=== PATIENT | male | born 1970 | race African-American/Black ===

== ENCOUNTER → 2017-08-24 15:09 | Outpatient (CLI) | payer BC, SELFPAY ==
--- NOTE | 2017-08-24 15:16 | CT_ITS ---
CT head/brain wo con INDICATION: Syncopal episode, hit back of head on concrete Routine axial images for brain followed by additional post-processing axial bone window images. Axial CT scanning from the base of the skull through the vertex to evaluate the brain was performed. Subsequent post processing 2-D CT bone windows were submitted to PACS and are useful to evaluate calvarium, visualize portions of paranasal sinuses, mastoids and base of skull. Technique: All CT scans at this facility use one or more dose reduction techniques, viz.: automated exposure control; ma/kV adjustment per patient size (including targeted exams where dose is matched to indication; i.e. head) or iterative reconstruction technique. Multiaxial scans are obtained from the base of the skull to the vertex and performed without contrast. The base of the skull appeared normal. The ventricular system was normal. There was no ischemic infarct or bleed and there were no extra-axial fluid collections. The bony calvarium appeared intact. IMPRESSION: Negative noncontrast CT scan of the brain.
== END ==
PROVIDERS: PCP Nurse Practitioner; Visit Provider Nurse Practitioner
DX: S06.0X9A Concussion with loss of consciousness of unspecified duration, initial encounter (principal); R53.1 Weakness
CPT/HCPCS: 70450

== ENCOUNTER → 2019-04-08 10:44 | Outpatient (CLI) | payer OTHER, SELFPAY ==
--- NOTE | 2019-04-08 10:44 | MR_ITS ---
PROCEDURE: MR SHOULDER RT WO CON CLINICAL INDICATION: Decreased ROM right shoulder Decreased range of motion, fall with injury and pain, weakness in right arm COMPARISON: XR SHOULDER RT MIN 2V from 03/21/2019 TECHNIQUE: Routine multiplanar multi echo sequences are performed without gadolinium enhancement. FINDINGS: There is some increased T2 signal involving the posterior aspect of the supraspinatus tendon with suggestion of some discontinuity suggesting a full-thickness tear along the posterior aspect of the supraspinatus tendon. A complete tear with tendinous some muscle retraction is not present. There is increased T2 signal involving the greater tuberosity which could be posttraumatic or inflammatory in nature. The subscapularis, teres minor, and infraspinatus tendons appear intact. There is a small amount of subdeltoid fluid signal. No obvious labral tear. The bicipital tendon is in place. No significant effusion. There is a small amount of bone marrow edema in the humeral head posteriorly. IMPRESSION: 1. There does appear to be a full-thickness tear along the posterior aspect of the supraspinatus tendon. A complete tear however is not present. 2. There is some bone marrow edema at the greater tuberosity in the humeral head and a small amount of subdeltoid fluid Dictated by: Ravi Sanchez MD 04/11/2019 10:01 Electronically signed by Ravi Sanchez MD in [place] 04/11/2019 10:01
== END ==
PROVIDERS: PCP Physician Assistant; Visit Provider Physician Assistant
DX: M25.511 Pain in right shoulder (principal)
CPT/HCPCS: 73221

== ENCOUNTER 2019-04-19 09:00 | Outpatient (RCR) | payer OTHER, SELFPAY ==
--- NOTE | 2019-04-05 11:40 | HMH.OTOPEV ---
OT Inpatient Evaluation Rehab OT Outpatient Eval Start: 04/05/19 11:27 Freq: Status: Active Protocol: Document 04/05/19 11:27 SUNNY (Rec: 04/05/19 11:39 [id number] Electronically Signed By Maddie Nieto OT 04/05/19 11:27 Outpatient Therapy Subjective History Subjective History Pt is a 48 year old male who reports to therapy for initial evaluation to right shoulder. Pt reports he was wrestling around with a friend and heard a pop in his right shoulder resulting in immediate pain. Pt has had decreased AROM and pain since this accident. Pt does demonstrate with decreased AROM and strength at right shoulder. Pt has most pain and palpation tenderness over the bicep tendon. Pt is right hand dominant. Pt has an MRI scheduled at 11 on thursday . Pt will continue to be seen twice a week in order to address all deficits. Chief Complaint Pain,Stiff,Weakness Symptom Type Ache,Throb,Sharp,Shooting Symptoms Relieved By Nothing Symptoms Aggravated By Physical Activity,Lifting Prior Functional Limitations None Current Functional Limitations Reaching,Lifting,Housework, Driving,Sleeping,Recreation Activity Symptom Description Constant but Variable Level of pain today (0-10) 4 Pain scale - at its best (0-10) 4 Pain scale - at its worst (0-10) 10 Shoulder/Elbow Eval Shoulder Objective Measurements Shoulder ROM Right Shoulder ROM Limitations Pain Shoulder Abduction Active Range of 105 degrees Motion (degrees) Shoulder Flexion Active Range of Motion 105 degrees (degrees) Query Text: Shoulder External Rotation Active Range 30 degrees of Motion (degrees) Shoulder Internal Rotation Active Range 42 degrees of Motion (degrees) pain with active ROM shoulder exam right standard pain with passive ROM shoulder exam right standard decreased ROM shoulder exam standard right full ROM shoulder exam standard left Shoulder MMT Shoulder Abduction Strength Grade 3+ Fair+ Shoulder Extension Strength Grade 3+ Fair+ Shoulder Flexion Strength Grade 3+ Fair+ Shoulder Horizontal Abduction Strength 3 Fair
== END 2019-04-19 09:05 | disposition home or self-care (01) ==
LOC: OT 09:00
PROVIDERS: PCP Physician Assistant; Visit Provider Physician Assistant
DX: M25.511 Pain in right shoulder (principal)
CPT/HCPCS: 97014; 97033; 97110; 97166; G0283

== ENCOUNTER 2019-04-26 15:05 | Outpatient (RCR) | payer OTHER, SELFPAY | END 2019-04-26 15:40 | disposition home or self-care (01) | LOC: OT 15:05 | PROVIDERS: Visit Provider Orthopaedic Surgery | DX: G56.01 Carpal tunnel syndrome, right upper limb (principal) | CPT/HCPCS: 97763 ==

== ENCOUNTER → 2019-05-09 11:01 | Outpatient (POV) | payer OTHER, SELFPAY | PROVIDERS: PCP Physician Assistant; Visit Provider Specialist | DX: R20.2 Paresthesia of skin (principal); M79.602 Pain in left arm; M79.601 Pain in right arm | CPT/HCPCS: 95886; 95908 ==

== ENCOUNTER → 2019-08-12 08:37 | Outpatient (CLI) | payer OTHER, SELFPAY ==
--- NOTE | 2019-08-12 08:57 | XR_ITS ---
PROCEDURE: XR CHEST 2V CLINICAL HISTORY: H/O TOBACCO USE COMPARISON: No exams were available for comparison FINDINGS: The cardiomediastinal silhouette and pulmonary vascularity are within normal limits. There is evidence of old granulomatous disease with calcified granulomas on the right. Lungs are otherwise clear. The No acute bony abnormalities. IMPRESSION: No acute findings. Dictated by: Ravi Sanchez MD 08/16/2019 09:18 Electronically signed by Ravi Sanchez MD in [facility] 08/16/2019 09:18
[2019-08-12 09:09] LABS: Basophils % 0.4 % (0.1-2.0); Eosinophils # 0.2 K/mm3 (0.0-0.4); Hematocrit 40.7 % (42.0-52.0); Lymphocytes # 1.5 K/mm3 (0.7-4.5); Lymphocytes % 35.5 % (10-50); Mean Corpuscular HGB Conc 34.4 g/dL (31.8-35.4); Mean Corpuscular Volume 101.9 fl (80-94); Mean Platelet Volume 7.8 fl (7.4-10.4); Monocytes # 0.3 K/mm3 (0.1-1.0); Monocytes % 6.2 % (1.7-9.3); Neutrophils # 2.3 K/mm3 (1.8-7.8); Neutrophils % 53.9 % (37.0-80.0); Platelet Count 183 K/mm3 (142-424); Red Blood Count 3.99 M/mm3 (4.60-6.20); White Blood Count 4.3 K/mm3 (4.8-10.8)
[2019-08-12 09:47] LABS: Alanine Aminotransferase 26 U/L (12-78); Albumin Level 4.4 g/dl (3.5-5.0); Albumin/Globulin Ratio 1.7 (1.1-1.8); Alkaline Phosphatase 85 U/L (38-126); Anion Gap 10.6 mEq/L (5-15); Aspartate Amino Transferase 38 U/L (17-59); Bilirubin,Total 0.5 mg/dl (0.2-1.3); Blood Urea Nitrogen 22 mg/dl (9-20); Calcium 9.6 mg/dl (8.4-10.2); Carbon Dioxide 31 mmol/L (22.0-30.0); Chloride 101 mmol/L (98-107); Estimated Glomerular Filt Rate 79 ml/min (>60); GFR (African American) 96 ML/MIN (>60); Globulin 2.6 g/dL (1.3-3.2); Glucose 163 mg/dl (74-100); Potassium 4.6 mmoL/L (3.5-5.1); Sodium 138 mmol/L (136-145)
[2019-08-12 10:03] LABS: Coronavirus 19 IgG Antibody Negative (Negative); Coronavirus 19 IgM Antibody Negative (Negative)
== END ==
PROVIDERS: Visit Provider Orthopaedic Surgery
DX: Z01.818 Encounter for other preprocedural examination (principal); M25.511 Pain in right shoulder
CPT/HCPCS: 36415; 71046; 80053; 85025; 86328

== ENCOUNTER → 2019-08-14 12:02 | Outpatient (CLI) | payer OTHER, SELFPAY | PROVIDERS: PCP Physician Assistant; Visit Provider Physician Assistant | DX: Z01.818 Encounter for other preprocedural examination (principal) ==

== ENCOUNTER 2019-08-15 07:17 | Day surgery (SDC) | payer OTHER, SELFPAY ==
[2019-08-10 11:17] VITALS: BMI 23.7
[2019-08-15] VITALS (10 sets, daily range): BP systolic 104–144; BP diastolic 48–76; PULSE 58–100; RESP 13–20; TEMP 36.2–43; O2SAT 94–100
--- NOTE | 2019-08-15 09:26 | HMH.ANESCL ---
[facility] Anesthesia Checklist - Patient Identification Patient Identification: Arm Band, Verbal (Name & ) - Structural Data Admitted From: Home Planned Operative Procedure/s: Right shoulder arthroscopy, open RCR, subacromial decompression, biceps ten Consent for Planned Operative Procedure(s) Verified: Yes Verified Documents: Surgical Consent, History and Physical - NPO Status Verified Time NPO: 23:00 - Chart Verification Results Verified: CBC, BMP, PT, PTT, INR - Additional verifications Anesthesia Reactions: No Hx Blood Transfusions: No Blood Transfusion Reaction: No - Airway Assessment C-Spine Mobility Assessed: Yes TMJ Mobility Assessed: Yes Dentition: Poor Dentition (missing/broken) - Neurological Assessment Level of Consciousness: Awake, Alert, Appropriate, Follows Commands Hx Seizures: No Numbness or tingling in extremities: No - Anesthesia Plan Anesthesia Risk discussed: Yes Anesthesia Plan: Verified ASA Class: II Anesthesia Type: General w/block [facility] History I have reviewed the patient's past medical history: Yes Medical History: Denies:: Cancer, Diabetes Mellitus Type 1, Diabetes Mellitus Type 2, MRSA, Seizures *Have you ever received a pneumonia vaccine?: No *Have you received a flu vaccine this season?: Yes Other Medical History: Denies: Blood Transfusion Reaction Anesthesia experience/problems:: no prior complications Other Surgeries: Yes: Appendectomy, Other (left thumb) Amputation: No Fractures: No - *Social History Smoking Status: Current every day smoker Tobacco Type: cigarettes # Packs/Day (cigarettes): 1 Alcohol Intake: current Alcohol Intake Frequency:: holidays/special occasions only Substance Use Type: marijuana *Occupational Status:: employed *Travel in the last 8 weeks: None Family Hx:: No significant family history
--- NOTE | 2019-08-15 13:13 | SUR.OPER ---
1313-family updated at this time
[2019-08-15 13:40] LABS: Microscopic,Cath URINE MICROSCOPIC (MICROSCOPIC)
--- NOTE | 2019-08-15 14:32 | SUR.OPER ---
1432-family updated at this time
[2019-08-15 14:35] LABS: Appearance,Urine/Cath CLEAR (Clear); Bilirubin,Cath Negative (Negative); Blood, Urine/Cath Negative (Negative); Color,Urine/Cath YELLOW (Yellow); Glucose,Urine/Cath (UA) Negative (Negative); Ketones,Urine/Cath Negative (Negative); Leukocyte Esterase,Cath Negative (Negative); Nitrate,Cath Negative (Negative); Protein,Urine/Cath Negative (Negative); Specific Gravity, Urine/Cath >= 1.030 (1.005-1.030); Urobilinogen,Cath 0.2 EU/dl (0.2)
[2019-08-15 14:41] LABS: RBC,Urine/Cath Occasional # /hpf (0-3); Squamous Epithelial Ur./Cath Occasional #/hpf (0-5)
--- NOTE | 2019-08-15 16:38 | HMH.ANESI ---
[facility] Anesthesia Record Part I Intake, IV Amount: 1,600 Estimated blood loss (mL): 50 Urine output (mL): 300 Blood Products used (#): none Blood Pressure: 144/73 SaO2: 97 Pulse Rate: 100 Respiratory Rate: 13 Temperature: 97.2 F Patient is:: Awake, Drowsy, Stable Stable to PACU at:: 16:30 Comments:: Pt states no pain at this time, VSS. Pt tolerated procedure well.
--- NOTE | 2019-08-15 17:01 | HMH.OPNOTE ---
Date of procedure: 08/15/19 Pre-op Diagnosis:: 1. Full-thickness Rotator cuff tear RIGHT shoulder 2. Biceps tendinopathy RIGHT shoulder 3. Subacromial bursitis RIGHT shoulder 4. Subacromial impingement RIGHT shoulder 5. Rotator cuff tendinopathy RIGHT shoulder Post-op Diagnosis:: 1. Rotator cuff tear RIGHT [id number] partial thickness tear of the supraspinatus. 2. Biceps tendinopathy RIGHT shoulder 3. Subacromial bursitis RIGHT shoulder 4. Subacromial impingement RIGHT shoulder 5. Degenerative labrum and synovitis RIGHT glenohumeral joint Procedure performed:: 1. Arthroscopic rotator cuff repair, RIGHT shoulder. 2. Arthroscopic subacromial decompression with subacromial and subdeltoid bursectomy and bony acromioplasty, RIGHT shoulder. 3. Arthroscopic glenohumeral joint debridement, extensive, RIGHT shoulder. 4.? Arthroscopic biceps tenodesis, RIGHT shoulder. Surgeon:: Ronaldo Slaughter MD GANG MINER:: Suleman Spain Anesthesia: GETA, regional (Interscalene block) Estimated blood loss (mL): 5 Clinical Note:: Patient is a pleasant 49-year-old [id number] gentleman with history of pain and disability in his RIGHT shoulder for over 6 months. His symptoms started following an injury at that time while he was wrestling with a friend. His symptoms gradually worsened over the period of time and continued to be troublesome during his daily activities. He had weakness and difficulty with the use of the arm. Preoperative evaluation was consistent with the above mentioned diagnosis. His shoulder MRI scan showed a full-thickness tear of the supraspinatus tendon. 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 He has no significant medical problems; no history of diabetes mellitus; he is a chronic smoker. After discussion of the risks and benefits of the surgical versus nonsurgical management, he elected to proceed with surgical remediation. Please refer to my office note for full details. Operative findings:: There was a high-grade partial-thickness tear of the supraspinatus tendon involving more than 50% of the tendon thickness. The biceps tendon showed synovitis in the bicipital groove. At the time of arthroscopic tenodesis marked synovitis and partial thickness tear was noted in the extra-articular part of the biceps tendon. The labrum was frayed all around and was partially detached around the biceps anchor. The pouch and rotator interval were synovitic. The articular surface of the humerus was normal and the glenoid had minor degenerative changes. There was extensive subacromial and subdeltoid bursitis and the acromion had undersurface spurring over the anterolateral margin. Operative note:: On the day of the procedure, the patient was met and positively identified in the preoperative area; the surgical site was marked and initialed by me. I have again reviewed the clinical, x- ray and MRI findings with the patient. We had a detailed discussion about the diagnosis, implications of it, natural history and management options including both nonsurgical and surgical options for the shoulder.? Patient has decided to proceed with surgery as planned - the proposed surgery includes arthroscopic/open glenohumeral joint examination and debridement as appropriate, subacromial decompression with bony acromioplasty, rotator cuff repair as needed and biceps tenodesis.? Nonsurgical alternatives explained as well which in his case would be rest, activity modification, local ice and heat as appropriate, physical therapy, local steroid injections, nonsteroidal anti-inflammatory drugs and other effective pain management measures. I told the patient that there were no guarantees with surgery; he could be no better or even worse. The complications discussed include but are not limited to infection, injury to nerves, blood vessels and tendons/ligaments, bleeding, continued symptoms, ectopic calcification, reactive bursitis, adhesive capsulitis, shoulder stiffness,
--- NOTE | 2019-08-15 17:09 | PC.NURSE ---
1657-detailed report called to MARTÍNEZ Singh 1699-pt transported to post op via stretcher w/jose rails up and left in care of MARTÍNEZ Singh with bed locked in lowest position, vss, pt stable
--- NOTE | 2019-08-16 07:13 | P.PN_ITS ---
[facility] Anesthesia Record Part II Discharge Time: 17:20 Destination: Surgical Day Care (OP Surgery) PACU nurse assessment reviewed?: Yes Patient Condition:: Good Anesthesia Complications:: None Swallowing reflex intact?: Yes Cyanosis?: No Blood Pressure: 109/58 Pulse Rate: 93 Temperature: 97.6 F Mental Status: Alert & Oriented Pain level:: 0 Nausea and/or vomitting:: None Intake, IV Amount: 0
[2019-08-16 07:15] VITALS: BP 109/58; PULSE 93; TEMP 36.4
== END 2019-08-15 17:44 | disposition home or self-care (01) ==
PROVIDERS: PCP Physician Assistant; Visit Provider Orthopaedic Surgery
PROC: (CPT 29805; principal; 2019-08-15 09:00)
DX: M75.121 Complete rotator cuff tear or rupture of right shoulder, not specified as traumatic (principal); M75.51 Bursitis of right shoulder; M67.911 Unspecified disorder of synovium and tendon, right shoulder; M75.41 Impingement syndrome of right shoulder; M75.21 Bicipital tendinitis, right shoulder; Z72.0 Tobacco use
CPT/HCPCS: 29827; 29828; 29826; 81001; 96374; C1713; J2405

== ENCOUNTER → 2019-11-16 12:56 | Outpatient (CLI) | payer OTHER, SELFPAY ==
--- NOTE | 2019-11-16 13:00 | XR_ITS ---
PROCEDURE: XR SHOULDER RT MIN 2V CLINICAL INDICATION: sp RT shoulder surgery, sx 08/16/2019 Surgery COMPARISON: CR XR SHOULDER RT MIN 2V from 03/21/2019 FINDINGS: There has been interval right shoulder surgery with 2 anchor screws in the right humeral neck region as well as a lucency within the proximal shaft of the humerus from bicipital transfer. There is some minimal cortical regularity of the humeral head at the greater tuberosity region and there is mild osteoarthritic change of the glenohumeral joint. No acute fracture or dislocation. No lytic or blastic change. IMPRESSION: Postsurgical changes as described above with mild osteoarthritis of the glenohumeral joint Dictated by: Ravi Sanchez MD 11/16/2019 16:05 Ravi Sanchez MD in [place] 11/16/2019 16:05
== END ==
PROVIDERS: PCP Physician Assistant; Visit Provider Orthopaedic Surgery
DX: Z09 Encounter for follow-up examination after completed treatment for conditions other than malignant neoplasm (principal); Z98.890 Other specified postprocedural states; M75.101 Unspecified rotator cuff tear or rupture of right shoulder, not specified as traumatic
CPT/HCPCS: 73030

== ENCOUNTER 2019-12-06 16:30 | Outpatient (RCR) | payer OTHER, SELFPAY ==
--- NOTE | 2019-10-13 12:03 | HMH.PTOPEV ---
PT Outpatient Evaluation Rehab PT Outpatient Evaluation Start: 10/13/19 11:42 Freq: Status: Active Protocol: Document 10/13/19 11:42 JOSE (Rec: 10/13/19 12:03 LOISVERONICAGARY [id number]) Electronically Signed By Roberto Cavanaugh, PT 10/13/19 11:42 Outpatient Therapy Subjective History Subjective History Patient is a 49 year old male presenting to outpatient PT with reports of R post- surgical shoulder S/P R shoulder RCR with SAD, sub acromial/subdeltoid bursectomy , GHJ debridement and biceps tenodesis performed 08/15/19. Pt currently on 5lb lifting restriction per patient report . Onset of symptoms indidious. Hx of R shoulder pain for approx 1 year. Pt reports incident while driving when he made a quick reaching motion causing a pop in the biceps area posssibly indicating compromise of biceps tensodeses. No other comorbidities to report. Chief Complaint Pain,Stiff Symptom Type Ache,Sharp Symptoms Relieved By Rest/Positioning,Ice Symptoms Aggravated By Physical Activity,Lifting Prior Functional Limitations None Current Functional Limitations Reaching,Lifting,Housework, Recreation Activity Symptom Description Intermittent Level of pain today (0-10) 0 Pain scale - at its best (0-10) 0 Pain scale - at its worst (0-10) 4 Shoulder/Elbow Eval Shoulder Objective Measurements Palpation Tenderness tenderness over the bicipital tendon left shoulder exam standard Shoulder Palpation Overall Comment 3/4 Posture Shoulder Posture Sitting Position Neutral Shoulder Posture Standing Position Neutral Shoulder ROM Right Shoulder Abduction Active Range of 35 Motion (degrees) Shoulder Flexion Active Range of Motion 32 (degrees) Query Text: Shoulder External Rotation Active Range 30 of Motion (degrees) Shoulder Internal Rotation Active Range WNL of Motion (degrees) Shoulder MMT Bilateral Shoulder Strength Reason Not Measured Orthopedic Precautions Shoulder Special Tests impingement sign present shoulder exam right standard Shoulder Drop Arm Test Positive Right Shoulder Cross-Over Impingement Test Positive Right Shoulder Veronica
--- NOTE | 2019-11-09 17:40 | HMH.RHREAS ---
Rehab Reassessment Rehab OP Re-assessment Start: 11/09/19 16:54 Freq: Status: Active Protocol: Document 11/09/19 16:54 JOSE (Rec: 11/09/19 16:59 JOSE [id number]) Electronically Signed By Roberto Cavanaugh, PT 11/09/19 16:54 Rehab Re-assessment Subjective Subjective Patient reports 70% improvement since start of care. Objective Objective Notes AROM: flx 129; abd 116; ER 64; IR 55 PROM: flx 140; abd 134; ER 70; IR 59 MMT: Flx/ABD/ER/IR 4-/5; biceps not tested. Neuro:WNL Pain: 0/10 today; 3/10 at worst over past week TTP: none Assessment Progress Assessment Progressing as Expected Assessment Notes Progressing per MD protocol at this point we have not initiated stretngthening. Plan to introduce upon approval from MD after next visit. Patient demonstrates compliane with HEP and post-surgical restrictions. Functional limtations persist with all lifting and overhead activity. Patient goals met STG's Goals Not Met LTG's Revised Goals NA Plan Plan Continue with current POC. Frequency of Therapy 2x/week Duration of therapy 4 weeks Time and Billing Re-Eval Time 15 Re-Eval Billing Units 1 PHYSICIAN CERTIFICATION: I certify the specified therapy services for Wil Barrios are required, authorized, and reviewed every 30 days.
== END 2019-12-06 16:35 | disposition home or self-care (01) ==
LOC: PT 16:30
PROVIDERS: PCP Physician Assistant; Visit Provider Orthopaedic Surgery
DX: M25.511 Pain in right shoulder; M75.101 Unspecified rotator cuff tear or rupture of right shoulder, not specified as traumatic; M75.51 Bursitis of right shoulder; M67.911 Unspecified disorder of synovium and tendon, right shoulder; M75.41 Impingement syndrome of right shoulder; M75.21 Bicipital tendinitis, right shoulder; G89.29 Other chronic pain
CPT/HCPCS: 97010; 97014; 97110; 97140; 97163; 97164; G0283

== ENCOUNTER → 2020-07-31 13:39 | Outpatient (CLI) | payer OTHER, SELFPAY ==
--- NOTE | 2020-07-31 13:44 | XR_ITS ---
PROCEDURE: XR HAND LT MIN 3V CLINICAL INDICATION: left hand pain COMPARISON: CR HANDL3 HAND-LT-3 VIEWS from 05/31/2013 FINDINGS: No acute fracture or dislocation is evident. Posttraumatic osteoarthritic changes have developed at the 1st metacarpophalangeal joint. There is a small area of exostosis involving the distal shaft of the proximal phalanx of the 5th finger along the radial aspect. This may represent an osteo chondroma. This appears slightly more prominent from the previous exam but could be related to slight difference in positioning. Continued follow-up suggested. No other significant anomalies evident. Other findings:None. 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 Exostosis of the radial and distal aspect of the proximal phalanx of the 5th digit which may be slightly more prominent and may be due to an osteo chondroma. Please correlate with clinical parameters and follow-up radiograph in 6 months to confirm short term stability Dictated by: Ravi Sanchez MD 07/31/2020 14:27 Ravi Sanchez MD in [place] 07/31/2020 14:27
== END ==
PROVIDERS: PCP Physician Assistant; Visit Provider Orthopaedic Surgery
DX: M79.642 Pain in left hand (principal)
CPT/HCPCS: 73130

== ENCOUNTER 2020-07-31 14:50 | Outpatient (RCR) | payer OTHER, SELFPAY | END 2020-07-31 15:20 | disposition home or self-care (01) | LOC: OT 14:50 | PROVIDERS: Visit Provider Orthopaedic Surgery | DX: G56.02 Carpal tunnel syndrome, left upper limb (principal) | CPT/HCPCS: 97763 ==

== ENCOUNTER → 2020-10-09 11:54 | Outpatient (CLI) | payer OTHER, SELFPAY ==
--- NOTE | 2020-10-09 11:58 | XR_ITS ---
PROCEDURE: XR ELBOW LT MIN 3V CLINICAL INDICATION: left elbow pain COMPARISON: No exams were available for comparison FINDINGS: No fracture or dislocation. No lytic or blastic change. There is normal mineralization. The joint spaces are well-preserved. No significant degenerative/arthritic changes. No erosive changes evident. Other findings:No displaced fat pad IMPRESSION: Negative left elbow Dictated by: Ravi Sanchez MD 10/09/2020 12:15 Ravi Sanchez MD in [facility] 10/09/2020 12:15
--- NOTE | 2020-10-09 11:58 | XR_ITS ---
PROCEDURE: XR CHEST AP CLINICAL HISTORY: surgery 10/11/20; smoker COMPARISON: CR XR CHEST 2V from 08/12/2019 FINDINGS: Normal heart size. No evidence of CHF. No mediastinal or hilar mass. Questionable coronary artery calcifications on the left. Calcified nodules are present in the right middle lobe not significantly changed. The remaining lungs are clear. No acute bony abnormalities. IMPRESSION: Old granulomatous disease. No acute finding. Possible coronary artery calcifications Dictated by: Ravi Sanchez MD 10/09/2020 12:26 Ravi Sanchez MD in [place] 10/09/2020 12:26
[2020-10-09 12:33] LABS: Basophils # 0.1 K/mm3 (0-0.2); Basophils % 1.1 % (0.1-2.0); Eosinophils # 0.1 K/mm3 (0.0-0.4); Eosinophils % 2.6 % (0.1-12.0); Hematocrit 41.3 % (42.0-52.0); Hemoglobin 13.3 g/dL (14.1-18.0); Lymphocytes # 2.2 K/mm3 (0.7-4.5); Lymphocytes % 44.6 % (10-50); Mean Corpuscular HGB Conc 32.1 g/dL (31.8-35.4); Mean Corpuscular Hemoglobin 33.6 pg (27.0-31.2); Mean Corpuscular Volume 104.6 fl (80-94); Mean Platelet Volume 7.7 fl (7.4-10.4); Monocytes # 0.4 K/mm3 (0.1-1.0); Monocytes % 7.4 % (1.7-9.3); Neutrophils # 2.2 K/mm3 (1.8-7.8); Neutrophils % 44.3 % (37.0-80.0); Platelet Count 169 K/mm3 (142-424); Red Blood Count 3.95 M/mm3 (4.60-6.20); Red Cell Distribution Width 12.5 % (11.5-17.5); White Blood Count 4.9 K/mm3 (4.8-10.8)
[2020-10-09 13:10] LABS: Chloride 103 mmol/L (98-107); Potassium 5.2 mmoL/L (3.5-5.1); Sodium 138 mmol/L (136-145)
[2020-10-09 13:13] LABS: Alanine Aminotransferase 31 U/L (12-78); Albumin Level 4.4 g/dl (3.5-5.0); Albumin/Globulin Ratio 1.8 (1.1-1.8); Alkaline Phosphatase 79 U/L (38-126); Anion Gap 10.2 mEq/L (5-15); Aspartate Amino Transferase 36 U/L (17-59); Bilirubin,Total 0.6 mg/dl (0.2-1.3); Blood Urea Nitrogen 20 mg/dl (9-20); Calcium 9.1 mg/dl (8.4-10.2); Carbon Dioxide 30 mmol/L (22.0-30.0); Estimated Glomerular Filt Rate 71 ml/min (>60); GFR (African American) 85 ML/MIN (>60); Globulin 2.5 g/dL (1.3-3.2); Glucose 91 mg/dl (74-100); Total Protein,Serum 6.9 g/dl (6.3-8.2)
== END ==
PROVIDERS: PCP Physician Assistant; Visit Provider Orthopaedic Surgery
DX: Z01.818 Encounter for other preprocedural examination (principal); Z11.52 Encounter for screening for COVID-19; M25.522 Pain in left elbow
CPT/HCPCS: 71045; 73080; 80053; 85025; U0003

== ENCOUNTER 2020-10-11 09:35 | Day surgery (SDC) | payer OTHER, SELFPAY ==
[2020-10-10 09:47] VITALS: BMI 22.7
[2020-10-11] VITALS (10 sets, daily range): BP systolic 104–156; BP diastolic 58–88; PULSE 63–78; RESP 14–18; TEMP 36.2–36.3; O2SAT 94–99
--- NOTE | 2020-10-11 12:07 | P.PN_ITS ---
[facility] Anesthesia Checklist - Patient Identification Patient Identification: Arm Band - Structural Data Admitted From: Home Planned Operative Procedure/s: Carpal tunnel release and cubital tunnel release Consent for Planned Operative Procedure(s) Verified: Yes - NPO Status Verified Time NPO: 00:00 - Additional verifications Anesthesia Reactions: No Hx Blood Transfusions: No Blood Transfusion Reaction: No - Airway Assessment C-Spine Mobility Assessed: Yes TMJ Mobility Assessed: Yes Dentition: Good Dentition - Neurological Assessment Level of Consciousness: Awake Hx Seizures: No Numbness or tingling in extremities: No - Anesthesia Plan Anesthesia Risk discussed: Yes Anesthesia Plan: Verified ASA Class: II Anesthesia Type: General [facility] History I have reviewed the patient's past medical history: Yes Medical History: Denies:: Cancer, Diabetes Mellitus Type 1, Diabetes Mellitus Type 2, MRSA, Seizures *Have you ever received a pneumonia vaccine?: No *Have you received a flu vaccine this season?: No Other Medical History: Denies: Blood Transfusion Reaction Anesthesia experience/problems:: None Laterality Cases: Right: Arthroscopy Shoulder Other Surgeries: Yes: Appendectomy, Other Amputation: No Fractures: No - *Social History Last grade of school completed: High school graduate Smoking Status: Current every day smoker Tobacco Type: cigarettes # Packs/Day (cigarettes): 1 Alcohol Intake: current Alcohol Intake Frequency:: holidays/special occasions only Substance Use Type: marijuana *Occupational Status:: employed Housing: house *Travel in the last 8 weeks: None Family Hx:: Cancer
--- NOTE | 2020-10-11 14:54 | P.PN_ITS ---
[facility] Anesthesia Record Part I Intake, IV Amount: 900 Estimated blood loss (mL): 10 Urine output (mL): 0 Blood Pressure: 137/61 SaO2: 94 Pulse Rate: 70 Respiratory Rate: 18 Temperature: 97.2 F Patient is:: Drowsy, Oral/Nasal airway Stable to PACU at:: 14:53
--- NOTE | 2020-10-11 15:14 | HMH.OPNOTE ---
Date of procedure: 10/11/20 Pre-op Diagnosis:: 1. Cubital tunnel syndrome, left elbow 2. Carpal tunnel syndrome, left wrist Post-op Diagnosis:: Same Procedure performed:: 1. Cubital tunnel release, left elbow 2. Carpal tunnel release, left wrist Surgeon:: Ronaldo Slaughter MD [employer] Supervisor(s):: Aysha Webb COMPUTER FORENSICS INVESTIGATOR:: Yolanda Esquivel Anesthesia: LMA Estimated blood loss (mL): 10 Clinical Note:: Patient is a 50-year-old [id number] male with worsening paresthesias in the left hand. The EMG/NCV study showed moderate ulnar nerve compromise at or near the elbow involving both motor and sensory components. Symptomatically, he reports worsening paresthesias over the left hand; he says the whole of his left hand has tingling and numbness associated with some pain. He says his symptoms are gradually worsening. He also reports significant night symptoms and sleep disturbance. He says he wakes up in the middle of the night and vigorously shakes his hands to get some relief. He also reports weakness and clumsiness with his left hand. He says he is dropping things frequently. He has been wearing removable wrist splint at night but reports little to no relief. On clinical examination he has significant weakness and some intrinsic muscle wasting on the left side. Therefore, a left cubital tunnel release with or without anterior transposition of the ulnar nerve and a left carpal tunnel release are indicated to relieve the pain and paresthesias, improve function and prevent further permanent nerve damage. Please refer to my office note for full details. Operative findings:: Left cubital tunnel syndrome: On examination under anesthesia, the ulnar nerve noted not to be subluxing over the medial epicondyle. At surgery, the nerve is noted to be significantly constricted as it passed through the cubital tunnel. There was presence of hourglass constriction of the ulnar nerve behind the medial epicondyle and also some compression noted as it enters the flexor carpi ulnaris muscle. Left carpal tunnel syndrome: The intraoperative findings showed the median nerve to be very tightly compressed and hyperemic. The flexor retinaculum was noted to be thick and very tight. There was mild synovitis in the carpal tunnel. There was no evidence of any space-occupying lesions within the carpal tunnel. Operative note:: On the day of the surgery the patient was met in the preoperative area. Patient was positively identified and the operative site/side was marked and initialed by me. A physical examination was performed and the chart was updated. I again discussed the procedure, risks and benefits and alternatives with the patient. I have reviewed the clinical, EMG/NCV findings and discussed the diagnosis, natural history and management options in detail including both nonsurgical and surgical with the patient. His EMG/NCV studies only showed ulnar nerve compromise at or around the elbow but no comment was made about median nerve. However, clinically apart from the cubital tunnel syndrome findings, he also has significant symptoms and findings of carpal tunnel syndrome. He has had symptoms for a long time on the left side and had appropriate conservative management for a length of time without significant benefit. Therefore, following detailed discussion, he elected to proceed with surgical intervention in the form of left cubital tunnel decompression with or without anterior transposition of the ulnar nerve and left carpal tunnel release. Today I have again discussed the details of the cubital tunnel and carpal tunnel releases and ulnar nerve transposition procedure, risks and benefits and alternatives. We have also discussed the expected postoperative recovery and rehabilitation. We have discussed that the goal of the surgery is to stop further damage to the ulnar and median nerves by freeing up the nerves and possibly bringing the ulnar nerve to the front of the elbow to relieve p
--- NOTE | 2020-10-12 08:40 | P.PN_ITS ---
[facility] Anesthesia Record Part II Discharge Time: 15:23 Destination: Surgical Day Care (OP Surgery) PACU nurse assessment reviewed?: Yes Patient Condition:: Good Anesthesia Complications:: None Swallowing reflex intact?: Yes Cyanosis?: No Blood Pressure: 146/77 Pulse Rate: 65 Temperature: 97.2 F Mental Status: Alert & Oriented Pain level:: 0 Nausea and/or vomitting:: None Intake, IV Amount: 0
[2020-10-12 08:41] VITALS: BP 146/77; PULSE 65; TEMP 36.2
== END 2020-10-11 16:05 | disposition home or self-care (01) ==
LOC: OR 09:37
PROVIDERS: PCP Physician Assistant; Visit Provider Orthopaedic Surgery
PROC: (CPT 64721; principal; 2020-10-11 11:30)
DX: G56.02 Carpal tunnel syndrome, left upper limb (principal); G56.22 Lesion of ulnar nerve, left upper limb
CPT/HCPCS: 64721; 64718; 96374; J0131

== ENCOUNTER 2021-02-18 12:19 | Emergency (ER) | payer OTHER, SELFPAY ==
[2021-02-18 13:30] VITALS: BP 123/74; PULSE 74; RESP 19; TEMP 37; O2SAT 98; BMI 21.9
[2021-02-18 13:52] LABS: UTC Strep Screen (Rapid) Positive (Negative)
--- NOTE | 2021-02-18 14:19 | HMH.EDUTC ---
[facility] [place] Disposition Clinical Impression: Strep throat Disposition: Home, Self-Care Condition on Discharge: Good Instructions: DI for Strep Throat, Strep Throat, DI for Cough -- Adult Additional Instructions: Monitor Temp, Over the counter Motrin or Tylenol as directed/as needed Tylenol every 4 hours and Motrin every 6 hours (as long as your family doctor has told you that you can take it) for fever or pain. and straight to ER if unable to lower temp less than 101.0 after medication given *Warm salt water gargles may help to soothe the throat *Throat Lozenges *Warm fluids like tea with honey may help to soothe the throat *Sleep elevated *Humidifier/Vaporizer *If you did not take Penicillin shot or was unable to, start taking antibiotic immediately and make sure that you take it for the FULL length of time although you should start to feel better in 24-48 hours *change toothbrush and toothpaste 24-48 hours after starting to take antibiotics so you do not reinfect yourself Monitor Temp. Tylenol and/or Ibuprofen as needed. ER if fever is no less than 101 despite alternating Tylenol and Ibuprofen * Encourage fluids, water, Gatorade, powerade, pedialyte if infant/toddler/or child *Cold fluids, popsicles and ice cream may feel good on his throat Follow up IMMEDIATELY for new or worsening symptoms or no Noticeable improvement over the next 48-72 hours. 911 for difficulty breathing or swallowing Prescriptions: Benzonatate [Benzonatate 100mg cap] 100 mg PO Q8HP PRN #15 cap PRN Reason: Cough Transmission Status: Pending to [id number] Cefdinir [Omnicef 300mg Capsule] 300 mg PO BID #20 cap Transmission Status: Pending to [id number] Referrals: Yadi Traylor PA [Primary Care Provider] - Forms: Work/School Release Time of Disposition: 14:27 Medical Decision Making - Shane Inquiry Pt receiving controlled substance: No Shane was queried for this patient: No Vital Signs: 02/18/21 13:30 Temperature 98.6 F Temperature Source Oral Pulse Rate [Right Brachial] 74 Respiratory Rate 19 Blood Pressure [Right Arm] 123/74 Blood Pressure Mean [Right Arm] 90 Blood Pressure Source [Right Arm] Automatic Cuff Blood Pressure Position [Right Arm] Sitting 02 Sat by Pulse Oximetry 98 Oxygen Delivery Method Room Air - Lab Data Lab results reviewed: Yes: I reviewed the patient's lab results. Lab Results 02/18/21 13:28: Strep Scn Rapid Clinic Positive A [facility] [place] HPI - General Stated complaint: sore throat, cough, bodyaches, sob Time Seen by Provider: 02/18/21 14:19 Mode of Arrival: Ambulatory Source of Information: Patient Limitations: No Limitations Description of Symptoms (Recalled from Triage Doc. by RN): PATIENT C/O SORE THROAT SINCE YESTERDAY HEENT Symptoms (Recalled from RN notes): Yes Resp Symptoms (Recalled from RN notes): No Skin Symptoms (Recalled from RN notes): No MS Symptoms (Recalled from RN notes): No Functional Status (Recalled from RN notes): WNL - History of Present Illness Provider Complaint: Patient states that he started having sore throat yesterday and hurts when he swallows States that today he was feeling achy and his nose was stopped up too States that he tried to go to work but felt bad and had to leave so he came in to get checked out - Related Data Previous Rx's Medication Instructions Recorded Benzonatate [Benzonatate 100mg 100 mg PO Q8HP PRN #15 cap 02/18/21 cap] Cefdinir [Omnicef 300mg Capsule] 300 mg PO BID #20 cap 02/18/21 Allergies Allergy/AdvReac Type Severity Reaction Status Date / Time acetaminophen [From Tylenol] Allergy Severe Difficulty Verified 10/23/20 09:25 Breathing - Worker's Comp Is this a Worker's Comp case?: No [facility] History - Hepatitis A Screen Drug use history?: No High risk sexual behaviors?: No History of sexually transmitted infection?: No Currently employed?: No Childcare worker?: No Do you have
[2021-02-18 14:30] VITALS: BP 123/74; PULSE 74; RESP 19; TEMP 37; O2SAT 98
== END 2021-02-18 14:35 | disposition home or self-care (01) ==
PROVIDERS: Emergency Provider Nurse Practitioner; PCP Physician Assistant
DX: J02.0 Streptococcal pharyngitis (principal); F17.210 Nicotine dependence, cigarettes, uncomplicated
CPT/HCPCS: 87880; 99202; G0463

== ENCOUNTER → 2021-06-04 12:18 | Outpatient (CLI) | payer OTHER, SELFPAY ==
--- NOTE | 2021-06-04 12:22 | XR_ITS ---
FINAL REPORT CLINICAL HISTORY: Right shoulder pain. no recent trauma FINDINGS: RIGHT SHOULDER Three views demonstrate no acute fracture or dislocation. There is mild acromioclavicular and glenohumeral joint degenerative change. There are postoperative changes in the humeral head. The visualized bony structures are well aligned. No soft tissue abnormality is seen. IMPRESSION: Mild degenerative change. Reviewed, Interpreted and Dictated by Viktor Resendez III, MD Transcribed by Kay Delgado Authenticated by Viktor Resendez III, MD on 06/04/2021 01:53:18 PM [facility]
== END ==
PROVIDERS: PCP Physician Assistant; Visit Provider Orthopaedic Surgery
DX: M25.511 Pain in right shoulder (principal)
CPT/HCPCS: 73030

== ENCOUNTER → 2021-06-15 08:01 | Outpatient (CLI) | payer OTHER, SELFPAY ==
--- NOTE | 2021-06-15 08:08 | MR_ITS ---
FINAL REPORT CLINICAL HISTORY: right shoulder pain x's 3 months. hx of sx in shoulder and repairs made. reinjured 3 months ago. lrom. pain radiates down arm. unable to raise arm or lift anything. FINDINGS: Multiplanar MR imaging of the right shoulder was performed without contrast. There is been interval postoperative change of rotator cuff repair and biceps tenodesis. The tendons of the rotator cuff are intact without evidence of rotator cuff tear. There is mild a.c. joint arthrosis with mild outlet narrowing. A moderate amount of fluid is present in the subacromial/subdeltoid bursa. There is abnormal morphology of the superior labrum, favor postoperative change. Bone marrow edema is seen in the humeral head. There is abnormal signal in the axillary recess of uncertain etiology which could represent postoperative change. A large glenohumeral joint effusion is identified. The musculature is intact. There is no evidence of soft tissue mass or cyst. IMPRESSION: Interval postoperative change of rotator cuff repair and biceps tenodesis without evidence of rotator cuff tear or labral tear. Mild a.c. joint arthrosis with moderate subacromial/subdeltoid bursitis. Normal morphology of the superior labrum and abnormal signal in the axillary recess which could represent postoperative change. Large joint effusion. Reviewed, Interpreted and Dictated by Viktor Resendez III, MD Transcribed by Rose Grigsby Authenticated by Viktor Resendez III, MD on 06/17/2021 07:43:[address] [facility]
== END ==
PROVIDERS: PCP Physician Assistant; Visit Provider Orthopaedic Surgery
DX: M25.511 Pain in right shoulder (principal); G89.29 Other chronic pain
CPT/HCPCS: 73221

== ENCOUNTER 2021-07-01 13:15 | Emergency (ER) | payer OTHER, SELFPAY ==
[2021-07-01] VITALS (8 sets, daily range): BP systolic 113–153; BP diastolic 73–92; PULSE 52–79; RESP 13–20; TEMP 36.9–37; O2SAT 96–100; BMI 21.9
--- NOTE | 2021-07-01 13:27 | ECG_ITS ---
APPROVED REPORT Exam: Resting ECG HR:73 bpm ECG Measurements Heart Rate 73 AXES NV 143 P 55 QRSd 87 QRS 75 QT 366 T 27 QTc 392 Conclusion SINUS RHYTHM VOLTAGE CRITERIA FOR LVH [MEETS CRITERIA IN ONE OF: R(aVL), S(V1), R(V5), R(V5/V6)+S(V1)] ABNORMAL ECG UNCONFIRMED REPORT Electronically signed by : Sacha Feldman MD 07/03/2021 17:57:41
--- NOTE | 2021-07-01 13:31 | XR_ITS ---
FINAL REPORT CLINICAL HISTORY: cough, hiccups x 1 week, smoker COMPARISON: October 09, 2020 FINDINGS: SINGLE VIEW CHEST. The heart is normal in size. The mediastinum is unremarkable. There are multiple calcified granulomas in the right lung. The left lung is clear. There is no pneumothorax. IMPRESSION: No acute process. Reviewed, Interpreted and Dictated by Viktor Resendez III, MD Transcribed by Bessie Arzola Authenticated by Viktor Resendez III, MD on 07/01/2021 02:41:37 PM [facility]
[2021-07-01 13:45] LABS: Chloride 103 mmol/L (98-107)
[2021-07-01 13:46] LABS: Potassium 3.9 mmoL/L (3.5-5.1); Sodium 139 mmol/L (136-145)
[2021-07-01 13:48] LABS: Alanine Aminotransferase 31 U/L (12-78); Alkaline Phosphatase 84 U/L (38-126); Anion Gap 9.9 mEq/L (5-15); Aspartate Amino Transferase 43 U/L (17-59); Bilirubin,Total 0.6 mg/dl (0.2-1.3); Blood Urea Nitrogen 16 mg/dl (9-20); Carbon Dioxide 30 mmol/L (22.0-30.0); Creatinine Clearance Estimated 78 mL/min (50-200); Estimated Glomerular Filt Rate 78 ml/min (>60); GFR (African American) 95 ML/MIN (>60); Lipase 57 U/L (23-300)
[2021-07-01 13:49] LABS: Albumin Level 4.5 g/dl (3.5-5.0); Albumin/Globulin Ratio 1.6 (1.1-1.8); Calcium 10.5 mg/dl (8.4-10.2); Globulin 2.8 g/dL (1.3-3.2); Glucose 142 mg/dl (74-100); Total Protein,Serum 7.3 g/dl (6.3-8.2)
[2021-07-01 13:57] LABS: Basophils # 0.2 K/mm3 (0-0.2); Basophils % 2.9 % (0.1-2.0); Eosinophils # 0.2 K/mm3 (0.0-0.4); Eosinophils % 3.4 % (0.1-12.0); Hematocrit 45.6 % (42.0-52.0); Hemoglobin 14.6 g/dL (14.1-18.0); Lymphocytes % 34.2 % (10-50); Mean Corpuscular HGB Conc 32.1 g/dL (31.8-35.4); Mean Corpuscular Hemoglobin 34.3 pg (27.0-31.2); Mean Corpuscular Volume 106.9 fl (80-94); Mean Platelet Volume 8.6 fl (7.4-10.4); Monocytes # 0.5 K/mm3 (0.1-1.0); Monocytes % 8.3 % (1.7-9.3); Neutrophils % 51.2 % (37.0-80.0); Platelet Count 213 K/mm3 (142-424); Red Blood Count 4.26 M/mm3 (4.60-6.20); Red Cell Distribution Width 12.7 % (11.5-17.5); White Blood Count 5.8 K/mm3 (4.8-10.8)
[2021-07-01 14:01] LABS: Troponin I < 0.01 ng/ml (0.00-0.034)
--- NOTE | 2021-07-01 14:07 | PC.NURSE ---
Pt started having hiccups. Notified
--- NOTE | 2021-07-01 14:26 | PC.NURSE ---
Pt up to restroom
--- NOTE | 2021-07-01 14:52 | PC.NURSE ---
PT has been medicated per APR. Resting in bed at this time. No new needs
--- NOTE | 2021-07-01 15:46 | HMH.EDGENADL ---
ED Disposition Clinical Impression: Intractable hiccups Disposition: Home, Self-Care Condition on Discharge: Good Instructions: DI for Hiccups Prescriptions: Chlorpromazine HCl [Thorazine 10mg Tablet] 10 mg PO BID #20 tab Transmission Status: Pending to [id number] Referrals: Yadi Traylor PA [Primary Care Provider] - - Critical Care Critical Care Time: No Attestation: On 07/01/21, the high probability of a clinically significant, sudden or life threatening deterioration of the following system(s) required my full and direct attention, intervention and personal management. The time I documented below is in addition to time spent performing reported procedures but includes the following listed in this critical care notation. Medical Decision Making - Medical Records Medical records reviewed: Yes: I reviewed the patient's medical records. - Shane Inquiry Pt receiving controlled substance: No Vital Signs: 07/01/21 13:15 07/01/21 14:00 07/01/21 14:30 Temperature 98.6 F Temperature Source Oral Pulse Rate 55 L 59 L Pulse Rate [Right] 79 Respiratory Rate 16 20 16 Blood Pressure 145/76 H 116/78 Blood Pressure [Right Arm] 153/92 H Blood Pressure Mean 90 Blood Pressure Mean [Right Arm] 112 Blood Pressure Source [Right Arm] Automatic Cuff Blood Pressure Position [Right Arm] Sitting 02 Sat by Pulse Oximetry 100 100 100 Oxygen Delivery Method Room Air Oxygen Flow Rate (LPM) 07/01/21 15:00 07/01/21 16:29 Temperature Temperature Source Pulse Rate 52 L 62 Pulse Rate [Right] Respiratory Rate 18 Blood Pressure 131/79 Blood Pressure [Right Arm] Blood Pressure Mean 97 Blood Pressure Mean [Right Arm] Blood Pressure Source [Right Arm] Blood Pressure Position [Right Arm] 02 Sat by Pulse Oximetry 100 100 Oxygen Delivery Method Nasal Cannula Oxygen Flow Rate (LPM) 2 - Lab Data Lab Results 07/01/21 13:27: WBC 5.8, RBC 4.26 L, Hgb 14.6, Hct 45.6, MCV 106.9 H, MCH 34.3 H, MCHC 32.1, RDW 12.7, Plt Count 213, MPV 8.6, Neut % (Auto) 51.2, Lymph % (Auto) 34.2, [place] % (Auto) 8.3, Eos % (Auto) 3.4, Baso % (Auto) 2.9 H, Neut # (Auto) 3.0, Lymph # (Auto) 2.0, [place] # (Auto) 0.5, Eos # (Auto) 0.2, Baso # (Auto) 0.2 07/01/21 13:27: Sodium 139, Potassium 3.9, Chloride 103, Carbon Dioxide 30, Anion Gap 9.9, BUN 16, Creatinine 1.00, Estimated Creat Clear 78, Estimated GFR 78, Est GFR ( Amer) 95, Glucose 142 H, Calcium 10.5 H, Total Bilirubin 0.6, AST 43, ALT 31, Alkaline Phosphatase 84, Troponin I < 0.01, Total Protein 7.3, Albumin 4.5, Globulin 2.8, Albumin/Globulin Ratio 1.6, Lipase 57 07/01/21 15:54: Group A Strep Rapid Negative Result diagrams: 07/01/21 13:27 07/01/21 13:27 Orders (Tests/Meds): ED MEDICATIONS Generic Name Dose Route Start Last Admin Trade Name Sea PRN Reason Stop Dose Admin Sodium Chloride 10 ml 07/01/21 14:06 Sodium Chloride 0.9% 10ml Vial IV 07/31/21 14:05 NEEDED PRN to Dilute Lorazepam inj Sodium Chloride 8 ml 07/01/21 14:18 Sodium Chloride 0.9% 10ml Vial IV 07/31/21 14:17 NEEDED PRN dilute pepcid Sodium Chloride 10 ml 07/01/21 14:19 Sodium Chloride 0.9% 10ml Vial IV 07/31/21 14:18 NEEDED PRN to Dilute Lorazepam inj Discontinued Medications Generic Name Dose Route Start Last Admin Trade Name Sea PRN Reason Stop Dose Admin Albuterol Sulfate 2.5 mg 07/01/21 16:14 07/01/21 16:28 Albuterol 0.083% 2.5 Mg/3 Ml Neb IH 07/01/21 16:15 2.5 mg ONCE ONE Administration Chlorpromazine HCl 25 mg 07/01/21 15:57 07/01/21 16:16 Chlorpromazine 25mg Tablet PO 07/01/21 15:58 25 mg ONCE ONE Administration Diphenhydramine HCl 25 mg 07/01/21 13:31 07/01/21 13:35 Diphenhydramine 25mg Capsule PO 07/01/21 13:32 25 mg ONCE ONE Administration Famotidine 20 mg 07/01/21 14:18 07/01/21 14:32 Famotidine 20mg/2ml Vial IV 07/01/21 14:19 20 mg ONC
--- NOTE | 2021-07-01 16:00 | PC.NURSE ---
Spoke with Tony in pharmacy. They are going to send down dose of Thorazine
--- NOTE | 2021-07-01 16:15 | PC.NURSE ---
Called RT for neb treatment
[2021-07-01 16:36] LABS: Strep Scrn Group A (Rapid) Negative (Negative)
== END 2021-07-01 17:02 | disposition home or self-care (01) ==
PROVIDERS: Emergency Provider Emergency Medicine; PCP Physician Assistant
DX: R06.6 Hiccough (principal); J38.5 Laryngeal spasm; Z72.0 Tobacco use
CPT/HCPCS: 71045; 80053; 83690; 84484; 85025; 87430; 93005; 96361; 96374; 96375

== ENCOUNTER 2021-07-02 06:57 | Emergency (ER) | payer OTHER, SELFPAY ==
[2021-07-02 06:59] VITALS: BP 122/99; PULSE 84; RESP 18; TEMP 36.8; O2SAT 99; BMI 22.7
--- NOTE | 2021-07-02 07:07 | HMH.EDGENADL ---
ED Disposition Clinical Impression: Hiccups Disposition: Home, Self-Care Condition on Discharge: Good Instructions: DI for Hiccups, True or False: Some Hiccup Remedies Actually Work Additional Instructions: You have been evaluated for recurrent hiccups. Please use Thorazine as needed. Follow-up with ENT in their clinic. Return to the emergency department for any new or worsening symptoms. Referrals: Yadi Traylor PA [Primary Care Provider] - Time of Disposition: 08:01 - Critical Care Critical Care Time: No Attestation: On , the high probability of a clinically significant, sudden or life threatening deterioration of the following system(s) required my full and direct attention, intervention and personal management. The time I documented below is in addition to time spent performing reported procedures but includes the following listed in this critical care notation. Medical Decision Making - Medical Records Medical records reviewed: Yes: I reviewed the patient's medical records. - Shane Inquiry Pt receiving controlled substance: No Vital Signs: 07/02/21 06:59 07/02/21 07:30 Temperature 98.3 F Temperature Source Oral Pulse Rate 66 Pulse Rate [Right] 84 Respiratory Rate 18 Blood Pressure 119/71 Blood Pressure [Right Arm] 122/99 H Blood Pressure Mean [Right Arm] 106 Blood Pressure Source Automatic Cuff Blood Pressure Source [Right Arm] Automatic Cuff Blood Pressure Position Sitting 02 Sat by Pulse Oximetry 99 99 Oxygen Delivery Method Room Air Room Air Orders (Tests/Meds): ED MEDICATIONS Discontinued Medications Generic Name Dose Route Start Last Admin Trade Name Freq PRN Reason Stop Dose Admin Dexamethasone Sodium Phosphate 10 mg 07/02/21 07:07 07/02/21 07:12 Dexamethasone 4mg/Ml 5ml Mdv PO 07/02/21 07:08 10 mg ONCE ONE Administration Medical Decision Narrative: In summary this is a 51-year-old male presenting to the emergency department with persistent hiccups. Patient clinically stable on arrival. Vital signs within physical exam concerning for pharyngitis. Strep test was negative yesterday. Will give 10mg oral dexamethasone for pharyngitis. Patient states he cannot eat peanut butter, makes him nauseous. Given 1 tablespoon of sugar. Reassessment, he has had relief of the hiccups. Still has a foreign body sensation in his throat. Consulted ENT to help arrange follow-up. They will graciously see him in clinic. He has no respiratory difficulty, dysphagia, other concerning symptoms at this time. General Adult HPI - General Stated complaint: hiccups since last Thursday Time Seen by Provider: 07/02/21 07:07 Mode of Arrival: Ambulatory Source of Information: Patient Limitations: No Limitations - History of Present Illness HPI narrative: 51-year-old male presenting to the emergency department with hiccups. Hiccups started on Thursday, 6 days ago. Hiccups happen frequently, every few seconds. They are uncomfortable and irritating. He feels like his tonsils are swollen. No difficulty breathing or swallowing. He was evaluated in our emergency department yesterday where he was given Thorazine. The Thorazine helped minimally. Overnight continued to have hiccups. Nothing like this is ever happened before. Denies current chest pain, palpitations. Denies recent illness, nausea, vomiting, fevers, chills. - Related Data Previous Rx's Medication Instructions Recorded Chlorpromazine HCl [Thorazine 10mg 10 mg PO BID #20 tab 07/01/21 Tablet] Allergies Allergy/AdvReac Type Severity Reaction Status Date / Time acetaminophen [From Tylenol] Allergy Severe Difficulty Verified 06/25/21 10:23 Breathing [facility] History - Hepatitis A Screen Attestation statement:: This patient has been screened for Hepatitis A risk factors. Medical History: Denies:: Cancer, Diabetes Mellitus Type 1, Diabetes Mellitus Type 2, MRSA, Seizures
--- NOTE | 2021-07-02 07:13 | PC.NURSE ---
MARTÍNEZ Zuluaga at BS
[2021-07-02 07:30] VITALS: BP 119/71; PULSE 66; O2SAT 99
--- NOTE | 2021-07-02 07:51 | PC.NURSE ---
ED MD at
--- NOTE | 2021-07-02 07:53 | PC.NURSE ---
patient given ice water, elida'd by .
--- NOTE | 2021-07-02 07:59 | PC.NURSE ---
placed call to ENT ashish appt, they are to call back.
[2021-07-02 08:00] VITALS: BP 121/76; PULSE 63; O2SAT 100
--- NOTE | 2021-07-02 08:05 | PC.NURSE ---
ED MD at speaking with patient
[2021-07-02 08:31] VITALS: BP 113/61; PULSE 58; O2SAT 99
--- NOTE | 2021-07-02 08:41 | PC.NURSE ---
Spoke with ENT and they have made pt an appt for 1120 today. Pt has been advised and agrees.
[2021-07-02 08:48] VITALS: BP 113/61; PULSE 69; RESP 19; TEMP 36.8; O2SAT 98
== END 2021-07-02 08:49 | disposition home or self-care (01) ==
PROVIDERS: Emergency Provider Emergency Medicine; PCP Physician Assistant
DX: J02.9 Acute pharyngitis, unspecified (principal); R06.6 Hiccough; Z88.6 Allergy status to analgesic agent; F17.210 Nicotine dependence, cigarettes, uncomplicated; Z80.9 Family history of malignant neoplasm, unspecified
CPT/HCPCS: 99282